=== PATIENT | female | born 1970 | race Caucasian/White ===

== ENCOUNTER 2021-09-26 09:32 | Emergency (ER) | payer OTHER, SELFPAY ==
[2021-09-26] VITALS (14 sets, daily range): BP systolic 161–190; BP diastolic 91–115; PULSE 57–75; RESP 11–24; TEMP 36.9; O2SAT 97–100; BMI 26.6
--- NOTE | 2021-09-26 09:57 | DI.RAD.S_ITS ---
PROCEDURE: XR CHEST 2V INDICATIONS: Shortness of breath TECHNIQUE: 2 views of the chest were acquired. COMPARISON: None. FINDINGS: Surgical changes and devices: None. Lungs and pleura: Lungs are clear. No pleural effusions or pneumothorax. Mediastinum: Mediastinal contours are normal. Heart size is normal. Bones and chest wall: No suspicious bony abnormalities. Soft tissues appear unremarkable. IMPRESSION: No acute cardiopulmonary process demonstrated radiographically. Dictated by: Melvin Soto M.D. on 09/26/2021 at 10:51 Approved by: Melvin Soto M.D. on 09/26/2021 at 10:52
--- NOTE | 2021-09-26 10:04 | ED_ITS ---
HPI - General Adult General Chief complaint: Shortness of Breath/Dyspnea Stated complaint: High blood pressure, trouble breathing Time Seen by Provider: 09/26/21 09:54 History of Present Illness HPI narrative: 51-year-old woman with a history of Meniere's disease for which she takes hydr ochlorothiazide presents with noted elevated blood pressures over the last week, complaints of increasing fatigue, cognitive clouding, joint aches, myalgias and generally not feeling well. She notes she has gained approximately 20 lb with no change to diet or exercise recently and describes herself as quite active. She is worried and that issues related to her blood pressure him is requesting help with additional evaluation. She describes no recent fevers, cough, chills, vomiting, diarrhea, abdominal pain. She has had increased intermittent swelling to the feet and ankles over the last number of weeks particularly in the evening. She had a hysterectomy approximately 14 years ago so cannot use menstrual cycles to gauge where she might be as she approaches menopause. Related Data Previous Rx's Medication Instructions Recorded lisinopril 10 mg tablet 10 mg PO DAILY #90 tabs 09/26/21 Allergies Allergy/AdvReac Type Severity Reaction Status Date / Time erythromycin base Allergy Difficulty Verified 09/26/21 10:07 Swallowing Review of Systems Review of Systems Narrative: Remainder of complete review of systems is otherwise unremarkable except for that included in the HPI. Patient History Medical History (Updated 09/26/21 @ 13:55 by Ellen Cleary MD) Hypertension Social History Smoking Status: Never smoker Exam Initial Vital Signs Initial Vital Signs: Vital Signs Pulse Rate 58 L 09/26/21 09:49 Respiratory Rate 11 L 09/26/21 09:49 Pulse Oximetry 99 09/26/21 09:49 General: Healthy appearing, in no acute distress. Able to give a complete and coherent history. Well-nourished well-developed HEENT: Moist mucous membranes, normal sclera with reactive pupils, Neck: No JVD, supple Respiratory: Lungs are clear to auscultation, no wheezing no rales no rhonchi. Full and symmetrical air movement Cardiac: Regular rate and rhythm no murmurs no bruits Abdomen: Soft, nontender, good bowel tones, no flank pain Skin: Warm and dry, no rashes Neurologic: Grossly neurologically intact with no obvious asymmetries or abnormalities Extremities: No trauma, well perfused Psych: Cooperative, appropriate insight and affect Course Orders Ordered: ED Orders 09/26/21 09:47 COVID19 -Nasal RAPID/Pre-Proc Stat 09/26/21 09:55 BNP [NT-proBNP (BNP-Adult 18+)] Stat Complete Blood Count AUTO DIFF Stat Comprehensive Metabolic Panel Stat D Dimer Stat Lactate (Lactic Acid) Stat Trop I [Troponin I] Stat 09/26/21 09:57 XR chest 2V Stat EKG-12 Lead Stat Measure peak expiratory flow ONCE RT Consult Eval and Treat Now Discontinued Medications Acetaminophen (Acetaminophen 325 Mg Tablet) 975 mg PO NOW ONE Stop: 09/26/21 11:26 Last Admin: 09/26/21 11:59 Dose: 975 mg Documented By: BRENDA Vital Signs Vital signs: Vital Signs - 8 hr 09/26/21 10:01 09/26/21 09:49 09/26/21 10:00 Temperature 98.5 F Pulse Rate 64 58 L 57 L Respiratory Rate 16 11 L 14 Blood Pressure 183/99 H Pulse Oximetry 99 99 98 Oxygen Delivery Method Room Air 09/26/21 10:01 09/26/21 10:01 09/26/21 10:30 Temperature Pulse Rate 60 Respiratory Rate 20 Blood Pressure 175/100 H 164/94 H Pulse Oximetry 98 Oxygen Delivery Method 09/26/21 10:30 09/26/21 11:00 09/26/21 11:00 Temperature Pulse Rate 58 L 59 L Respiratory Rate 19 18 Blood Pressure 168/99 H Pulse Oximetry 98 98 Oxygen Delivery Method Room Air 09/26/21 11:29 09/26/21 11:29 09/26/21 11:30 Temperature Pulse Rate 58 L 57 L Respiratory Rate 18 15 Blood Pressure 182/95 H Pulse Oximetry 98 100 Oxygen Delivery Method 09/26/21 11:31 09/26/21 11:31 09/26/21 12:00 Temperature Pulse Rate 58 L Respiratory Rate 17 Blood Pressure 182/100 H 165/91 H Pulse Oximetry 99 Oxygen Delivery Method 09/26/21 12:00 09/26/21 12:30 09/26/21 12:30 Temperature Pulse Rate 61 75 Respiratory Rate 20 24 Blood Pressure 161/94 H Pulse Oximetry 99 98 Oxygen Delivery Method Medical Decision Making Lab Data Result diagrams: 09/26/21 09:55 09/26/21 09:55 Labs: Lab Results 09/26/21 09/26/21 09/26/21 Range/Units 09:47 09:55 09:55 WBC 5.3 (4.5-11.0) X10^3/uL RBC 5.07 (4.0-5.2) X10^6/uL Hgb 14.7 (12.0-16.0) g/dL Hct 44.6 (36-46) % MCV 87.8 (80-100) fL MCH 28.9 (26-34) PG MCHC 32.9 (30-36) % RDW 13.3 (11.6-14.8) % Plt Count 268 (150-400) X10^3/uL Neut % (Auto) 52.5 (50-75) % Lymph % (Auto) 37.2 (25-40) % [place] % (Auto) 8.3 (3-14) % Eos % (Auto) 1.4 L (2-4) % Baso % (Auto) 0.6 (0-2) % Neut # (Auto) 2800 (4173-4114) /uL Lymph # (Auto) 2000 (5497-3202) /uL [place] # (Auto) 400 (0-900) /uL Eos # (Auto) 100 (0-450) /uL Baso # (Auto) 0 (0-100) /uL D-Dimer (<230) ng/mL Sodium 139 (137-145) mmol/L Potassium 3.9 (3.4-5.1) mmol/L Chloride 100 (98-107) mmol/L Carbon Dioxide 33 H (22-32) mmol/L BUN 12 (7-17) mg/dL Creatinine 0.66 (0.52-1.04) mg/dL Estimated GFR > 60 (>60) mL/min BUN/Creatinine Ratio 18.2 (6-22) Glucose 130 H (70-100) mg/dL Lactate (0.7-2.1) mmol/L Calcium 9.9 (8.4-10.2) mg/dL Total Bilirubin 0.6 (0.2-1.3) mg/dL AST 50 H (14-36) IU/L ALT 36 H (<35) IU/L Alkaline Phosphatase 69 (38-126) U/L Troponin I (0.01-0.034) ng/mL NT-Pro-B Natriuret Pep (<125) pg/mL Total Protein 7.7 (6.3-8.2) g/dL Albumin 4.5 (3.5-5.0) g/dL Globulin 3.2 (1.7-4.1) g/dL Albumin/Globulin Ratio 1.4 (1.0-2.8) SARS-CoV-2 (PCR) Negative (Negative) 09/26/21 09/26/21 09/26/21 Range/Units 09:55 09:55 09:55 WBC (4.5-11.0) X10^3/uL RBC (4.0-5.2) X10^6/uL Hgb (12.0-16.0) g/dL Hct (36-46) % MCV (80-100) fL MCH (26-34) PG MCHC (30-36) % RDW (11.6-14.8) % Plt Count (150-400) X10^3/uL Neut % (Auto) (50-75) % Lymph % (Auto) (25-40) % [place] % (Auto) (3-14) % Eos % (Auto) (2-4) % Baso % (Auto) (0-2) % Neut # (Auto) (0666-6593) /uL Lymph # (Auto) (2675-8135) /uL [place] # (Auto) (0-900) /uL Eos # (Auto) (0-450) /uL Baso # (Auto) (0-100) /uL D-Dimer < 200 (<230) ng/mL Sodium (137-145) mmol/L Potassium (3.4-5.1) mmol/L Chloride (98-107) mmol/L Carbon Dioxide (22-32) mmol/L BUN (7-17) mg/dL Creatinine (0.52-1.04) mg/dL Estimated GFR (>60) mL/min BUN/Creatinine Ratio (6-22) Glucose (70-100) mg/dL Lactate 1.0 (0.7-2.1) mmol/L Calcium (8.4-10.2) mg/dL Total Bilirubin (0.2-1.3) mg/dL AST (14-36) IU/L ALT (<35) IU/L Alkaline Phosphatase (38-126) U/L Troponin I < 0.012 (0.01-0.034) ng/mL NT-Pro-B Natriuret Pep 75 (<125) pg/mL Total Protein (6.3-8.2) g/dL Albumin (3.5-5.0) g/dL Globulin (1.7-4.1) g/dL Albumin/Globulin Ratio (1.0-2.8) SARS-CoV-2 (PCR) (Negative) Imaging Data Chest x-ray: Radiologist's Impression: FINDINGS:? ? Surgical changes and devices:? None.? ? Lungs and pleura:? Lungs are clear.? No pleural effusions or pneumothorax.? ? Mediastinum:? Mediastinal contours are normal.? Heart size is normal.? ? Bones and chest wall:? No suspicious bony abnormalities.? Soft tissues appear unremarkable.? ? IMPRESSION:? No acute cardiopulmonary process demonstrated radiographically. ? ? Dictated by: Melvin Soto M.D. on 09/26/2021 at 10:51?of ECG Data Interpretation: Sinus rhythm at a rate of 69 Normal intervals, normal axis No acute ischemic changes MDM Narrative Medical decision making narrative: 51-year-old woman with documented hypertension and a sense that she is simply no t feeling well. She is currently on hydrochlorothiazide for Meniere's disease and to this will add lisinopril 10 mg daily and ask her follow-up with her primary care physician. She does have a blood pressure cuff and will continue to check daily blood pressures. Reviewed when to check and reasons for returning to the emergency department. Today there is no evidence of acute coronary syndrome, pulmonary embolus, congestive heart failure, left relate abnormalities or alternate diagnosis that would require further evaluation or hospitalization. I suspect she is also having menopausal symptoms and have added an FSH to her blood work in the emergency department will recommend that she follow-up with 1 of our OB GYNs at [facility] and phone numbers will be given. She is safe for home discharge Discharge Plan Departure Patient Disposition: Home Clinical Impression: Hypertension, Menopause Instructions: DI for High Blood Pressure Activity Restrictions/Additional Instructions: Thank you for coming in today Your workup was very reassuring. There is no evidence of heart attack, heart failure, stroke, congestive heart failure or other life-threatening diagnoses. It does appear that you do have high blood pressure. I am going to suggest that you refilling continue your hydrochlorothiazide and start lisinopril at 10 mg daily. Please check blood pressures 2-3 hours after you take her medications and continue your regular exercise program. He will need to schedule follow-up with your primary care physician to review your blood pressure and your new medications Regarding your hot flashes, weight change, cognitive clouding, joint issues, all of these things do sounds suspiciously like menopause. I have added an FSH level to your blood work to confirm. In the meantime I would recommend that you schedule an appointment with 1 of our OBGYN physicians and [facility], you can contact them to schedule the appointment at [phone] to discuss menopause issues If you find that you are getting worse or develop any new symptoms, please feel free to return to the emergency department for further evaluation. Prescriptions: New lisinopril 10 mg tablet 10 mg PO DAILY Qty: 90 0RF
[2021-09-26 10:11] LABS: Add Manual Diff / Slide Review NO; Basophils Absolute Auto 0 /uL (0-100); Basophils Percent Auto 0.6 % (0-2); Eosinophils Absolute Auto 100 /uL (0-450); Eosinophils Percent Auto 1.4 % (2-4); Hematocrit 44.6 % (36-46); Hemoglobin 14.7 g/dL (12.0-16.0); Lymphocytes Absolute Auto 2000 /uL (1100-4500); Lymphocytes Percent Auto 37.2 % (25-40); Mean Corpuscular HGB Conc 32.9 % (30-36); Mean Corpuscular Hemoglobin 28.9 PG (26-34); Mean Corpuscular Volume 87.8 fL (80-100); Monocytes Absolute Auto 400 /uL (0-900); Monocytes Percent Auto 8.3 % (3-14); Neutrophils Absolute Auto 2800 /uL (1500-7000); Neutrophils Percent Auto 52.5 % (50-75); Platelet Count 268 X10^3/uL (150-400); Red Blood Cell Count 5.07 X10^6/uL (4.0-5.2); Red Cell Distribution Width 13.3 % (11.6-14.8); White Blood Cell Count 5.3 X10^3/uL (4.5-11.0)
[2021-09-26 10:28] LABS: COVID19 -Nasal RAPID Negative (Negative)
[2021-09-26 10:53] LABS: D Dimer < 200 ng/mL (<230)
[2021-09-26 11:00] LABS: Alanine Aminotransferase 36 IU/L (<35); Albumin 4.5 g/dL (3.5-5.0); Albumin Globulin Ratio 1.4 (1.0-2.8); Alkaline Phosphatase 69 U/L (38-126); Aspartate Aminotransferase 50 IU/L (14-36); BUN Creatinine Ratio 18.2 (6-22); Bilirubin Total 0.6 mg/dL (0.2-1.3); Blood Urea Nitrogen 12 mg/dL (7-17); Calcium 9.9 mg/dL (8.4-10.2); Carbon Dioxide 33 mmol/L (22-32); Chloride 100 mmol/L (98-107); Estimated Glomerular Filt Rate > 60 mL/min (>60); Globulin 3.2 g/dL (1.7-4.1); Glucose 130 mg/dL (70-100); HEMOLYSIS < 15 (0-50); Potassium 3.9 mmol/L (3.4-5.1); Sodium 139 mmol/L (137-145); Total Protein 7.7 g/dL (6.3-8.2)
[2021-09-26 11:09] LABS: NT-proBNP (BNP-Adult 18+) 75 pg/mL (<125); Troponin I < 0.012 ng/mL (0.01-0.034)
[2021-09-26] MEDS: ACETAMINOPHEN 325 MG TABLET 975 MG PO (11:59)
[2021-09-26] MEDS: lisinopriL 10 MG TABLET PO (14:09)
[2021-09-26] MEDS: hydroCHLOROthiazide 25 MG TABLET PO (14:10)
[2021-09-26 14:51] LABS: Follicle Stimulating Hormone 67.6 mIU/mL
== END 2021-09-26 14:33 | disposition home or self-care (01) ==
PROVIDERS: Emergency Provider Emergency Medicine
DX: I10 Essential (primary) hypertension (principal); R53.83 Other fatigue; Z20.822 Contact with and (suspected) exposure to COVID-19; Z78.0 Asymptomatic menopausal state
CPT/HCPCS: 36415; 71046; 80053; 83001; 83605; 83880; 84484; 85025; 85379; 87635; 93005; 99284; C9803